=== PATIENT | female | born 1950 | race Caucasian/White ===

== ENCOUNTER 2021-03-24 07:54 | Day surgery (SDC) | payer MEDICARE, BC ==
[2021-03-24] MEDS ORDERED: Midazolam 1 MG/ML 2 ML SDV ONE (08:24)
[2021-03-24] MEDS ORDERED: fentaNYL 100 MCG/2 ML SDV ONE (08:24)
[2021-03-24] MEDS ORDERED: Propofol 200 MG/20 ML SDV ONE (08:24)
[2021-03-24] MEDS ORDERED: Sodium Chloride 0.9% 1,000 ML IV SCH (08:30)
[2021-03-24 11:20] VITALS: BP 120/63; PULSE 68
--- NOTE | 2021-03-24 16:43 | PROC ---
DATE OF PROCEDURE: SURGEON: Samir Murray MD PROCEDURE: Colonoscopy. FINDINGS: 1. Ascending colon polyp, approximately 5 mm, completely removed using cold biopsy forceps. 2. Ascending colon polyp #2, approximately 3 mm, completely removed using cold biopsy forceps. 3. Ascending colon polyp #4, approximately 5 mm, completely removed using hot snare wire device. 4. Ascending polyp #5, approximately 8 mm, completely removed using hot snare wire device. 5. Diverticulosis, mild. COMPLICATION: None. [employer]EDGE [employer] ENGINEER: None. ANESTHETIC: MAC. PREOPERATIVE DIAGNOSIS: Positive Cologuard. POSTOPERATIVE DIAGNOSIS: Positive Cologuard. RISKS: Risks, benefits, alternatives, and limitations including, but not limited to infection, bleeding, perforation, false positives, false negatives were explained to the patient, and she wished to proceed. PROCEDURE IN DETAIL: Patient was placed in left lateral decubitus position. Digital rectal exam was performed without abnormality. Scope was introduced and advanced atraumatically to the ileocecal valve. A photo was taken of the appendiceal orifice. Scope was brought back to the ascending, transverse, descending colon, and retroflexed. The aforementioned polyps were identified and all completely removed. No old or new blood. No masses. No polyps. Patient had diverticulosis, described as mild, limited to sigmoid colon without evidence of diverticulitis or bleeding. No abnormalities on retroflexion. Greater than 8 minutes was spent removing the scope. Prep was acceptable. Approximately 90% of the luminal surface could be seen. Samir Murray MD /[id number]
== END 2021-03-24 11:29 | disposition home or self-care (01) ==
LOC: JP.SDS 07:54
PROVIDERS: ATTEND Surgery
DX: D12.2 Benign neoplasm of ascending colon (principal); K57.30 Diverticulosis of large intestine without perforation or abscess without bleeding; I10 Essential (primary) hypertension; E11.9 Type 2 diabetes mellitus without complications
CPT/HCPCS: 45380; 45385; J2250; J2704; J3010; J7030

== ENCOUNTER 2024-04-30 06:31 | Day surgery (SDC) | payer MEDICARE, BC ==
[2024-04-30] MEDS ORDERED: Propofol 200 MG/20 ML SDV ONE (07:18)
[2024-04-30] MEDS ORDERED: fentaNYL 100 MCG/2 ML SDV ONE (07:18)
[2024-04-30] MEDS: Lactated Ringers 1,000 ML IV SCH (07:22)
[2024-04-30 09:13] VITALS: BP 158/65; PULSE 75
== END 2024-04-30 09:36 | disposition home or self-care (01) ==
LOC: JP.SDS 06:31
PROVIDERS: ATTEND Surgery
DX: Z12.11 Encounter for screening for malignant neoplasm of colon (principal); D12.2 Benign neoplasm of ascending colon; K57.30 Diverticulosis of large intestine without perforation or abscess without bleeding; I10 Essential (primary) hypertension; E11.9 Type 2 diabetes mellitus without complications
CPT/HCPCS: 00811; 45385; J2704; J3010; J7120